=== PATIENT | female | born 1970 | race African-American/Black ===

== ENCOUNTER 2016-09-09 16:22 | Emergency (ER) | payer BC ==
[~2016-09-09] VITALS: Ht 167.6 cm; Wt 84.8 kg
[~2016-09-09 16:22] MED LIST: ADULT LOW DOSE81 MG PO; AMOXICILLIN 50500 M1 PO; ATENOLOL 50 MG50 M1 PO; BENTYL 20 MG TA20 M1 PO; CARVEDILOL6.25 MG PO; CEFDINIR300 MG PO; CIPROFLOXACIN500 M1 PO; COLACE100 MG PO; CYCLOBENZAPRINE10 MG PO; FLAGYL500 MG PO; FLEXERIL PO; FLOMAX0.4 MG PO; GABAPENTIN 100100 MG PO; HYDROCHLOROTHIA25 M1 PO; HYDROXYCHLOROQ200 M1 PO; IBUPROFEN 600600 M1 PO; KLOR-CON 1010 MEQ PO; MEDROLDOSEPACK PO; MOBIC15 MG PO; MOBIC7.5 M1 PO; NAPROSYN500 MG PO; NORCO 5-325 TA1 EACH PO; NORFLEX100 MG PO; NORVASC10 MG PO; OMEPRAZOLE40 MG PO; ONDANSETRON HCL4 M2 PO; OXYCODONE HCL 55 MG PO; PENICILLIN VK500 MG PO; PERCOCET 5-3251 EACH PO; PHENERGAN 25 MG25 MG PO; PREDNISONE 20 M20 M1 PO; PREDNISONE 20 M20 MG PO; PRILOSEC 20 MG20 MG PO; PROTONIX40 MG PO; REGLAN 10 MG TA10 M1 PO; ROBAXIN 750 MG750 M1 PO; TIZANIDINE HCL4 MG PO; TRAMADOL 50 MG50 MG PO; ULTRACET TABLE1 EACH PO; ULTRAM 50MG TAB50 MG PO; VICODIN 5-5001 EACH PO; VITAMIN D 5050000 I1; VITAMIN D1000 UNI1 PO; XANAX 0.25 MG0.25 MG PO; ZANTAC 150MG T150 M1 PO; ZANTAC 150MG T150 MG PO; ZOFRAN ODT4 MG PO
[2016-09-09] MEDS ORDERED: CIPROFLOXIN HC2.5 M1 OPHTHALMIC (16:53)
== END 2016-09-09 17:12 | disposition home or self-care (01) ==
LOC: ER 16:22
DX: S05.01XA Injury of conjunctiva and corneal abrasion without foreign body, right eye, initial encounter (principal); H00.013 Hordeolum externum right eye, unspecified eyelid; I10 Essential (primary) hypertension; Z90.710 Acquired absence of both cervix and uterus; Z88.1 Allergy status to other antibiotic agents; Z88.2 Allergy status to sulfonamides; X58.XXXA Exposure to other specified factors, initial encounter; Y93.89 Activity, other specified; Y92.89 Other specified places as the place of occurrence of the external cause; Y99.9 Unspecified external cause status

== ENCOUNTER 2017-08-15 20:02 | Inpatient (IN) | payer OTHER ==
[~2017-08-15] VITALS: Ht 167.6 cm; Wt 90.4 kg
--- NOTE | ~2017-08-15 | 2DMMODE ---
[facility] [address] [address] 2 D/M-MODE ECHOCARDIOGRAM Name: CALLIE BOWEN Room #: 212-P ADM IN M.R.#: [id number] Admission: 08/15/17 Attend Phys: Austin Fall MD Discharge: Date of : 68 Date of Service: 08/16/17 1604 Report #: [id number] THIS REPORT FOR: //name// APPROVED REPORT Study performed: 08/16/2017 13:04:48 EXAM: Comprehensive 2D, Doppler, and color-flow Echocardiogram Patient Location: Echo lab Room #: [facility] Status: routine BSA: 1.98 HR: 74 bpm BP: 117/77 mmHg Other Information Study Quality: Good Indications Chest Pain Hypertension/HDD 2D Dimensions RVDd: 35.60 mm LVEF(%): 53.63 (>50%) IVSd: 9.23 (7-11mm) LVOT Diam: 19.03 (18-24mm) LVDd: 50.11 mm PWd: 10.19 (7-11mm) Ascending Ao: 29.89 (22-36mm) LVDs: 36.18 (25-40mm) Aortic Root: 28.94 mm IVC: 13.00 mm Elaine's LVEF: 53.63 % Volumes Left Atrial Volume (Systole) Single Plane 4CH: 51.32 mL Single Plane 2CH: 37.63 mL LA ESV Index: 24.00 mL/m2 Aortic Valve AoV Peak Enrrique.: 1.44 m/s AO Peak Gr.: 8.42 mmHg LVOT Max P.63 mmHg LVOT Max V: 0.81 m/s SHAKEEL Vmax: 1.60 cm2 AI Vmax: 4.43 m/s AI [place]: 2.90 m/s2 AI PHT: 443.53 ms [facility] [place] [address] 2 D/M-MODE ECHOCARDIOGRAM Name: CALLIE BOWEN Room #: 212-P [facility] IN ..#: [id number] Admission: 08/15/17 Attend Phys: Austin Fall MD Discharge: Date of : 68 Date of Service: 08/16/17 1604 Report #: [id number] Mitral Valve E/A Ratio: 1.2 MV Decel. Time: 215.99 ms MV E Max Enrrique.: 1.04 m/s MV A Enrrique.: 0.87 m/s MV PHT: 62.64 ms IVRT: 86.51 ms Pulmonary Valve PV Peak Enrrique.: 1.03 m/s PV Peak Gr.: 4.20 mmHg Pulmonary Vein P Vein S: 0.58 m/s P Vein A: 0.18 m/s P Vein D: 0.52 m/s P Vein A Dur.: 128.0 msec P Vein S/D Ratio: 1.12 Tricuspid Valve TR Peak Enrrique.: 2.82 m/s RAP Estimate: 5.00 mmHg TR Peak Gr.: 31.87 mmHg PA Pressure: 37.00 mmHg Left Ventricle The left ventricle is normal size. There is normal left ventricular wall thickness. The left ventricular systolic function is normal. The left ventricular ejection fraction is within the normal range. LVEF is 55%. The left ventricular diastolic function is normal. Right Ventricle Right ventricle is at the upper limits of normal. The right ventricular systolic function is normal. Atria The left atrium size is normal. Right atrium is at the upper limits of normal. Aortic Valve The aortic valve is normal in structure. Mild aortic regurgitation. There is no aortic valvular stenosis. Mitral Valve The mitral valve is normal in structure. Trace mitral regurgitation. No evidence of mitral valve stenosis. Tricuspid Valve The tricuspid valve is normal in structure. Trace tricuspid regurgitation. PAP is estimated at [address] [place] [address] 2 D/M-MODE ECHOCARDIOGRAM Name: CALLIE BOWEN Room #: 212-P [facility] IN ..#: [id number] Admission: 08/15/17 Attend Phys: Austin Fall MD Discharge: Date of : 68 Date of Service: 08/16/17 1604 Report #: [id number] Pulmonic Valve The pulmonary valve is normal in structure. There is no pulmonic valvular regurgitation. Great Vessels The aortic root is normal in size. IVC is normal in size and collapses >50% with inspiration. Pericardium There is no pericardial effusion. <Conclusion> The left ventricle is normal size. There is normal left ventricular wall thickness. The left ventricular systolic function is normal. Right ventricle is at the upper limits of normal. The left atrium size is normal. Mild aortic regurgitation. Trace mitral regurgitation. Trace tricuspid regurgitation. PAP is estimated at 37 mmHg. <ELECTRONICALLY SIGNED> By: Miller Brown MD 08/16/17 1604 1604 1604 Miller Brown MD /INF
--- NOTE | ~2017-08-15 | P ---
[facility] [place] [address] PROCEDURE REPORT Name: CALLIE BOWEN Room #: 212-P ADM IN M.R.#: [id number] Admission: 08/15/17 Attend Phys: Austin Fall MD Discharge: Date of : 68 Report #: [id number] THIS REPORT FOR: //name// CC: Ale Urias DO Inpatient Chart Allie Fall MD DATE OF SERVICE: 08/18/[address] Brownlee and Dr. Ale Urias. INDICATION FOR PROCEDURE: Evaluate noncardiac chest pain. Informed consent for this procedure was obtained prior to the administration of any medication. The risks of the procedure which include bleeding, perforation, infection, complications of sedation and the possibility of missing something have been explained to the patient and she has indicated her consent by signing. Propofol was slowly titrated before and during this procedure for patient comfort by the anesthesia service. The [employer] upper videoscope was introduced through the upper esophageal sphincter and advanced under direct visualization to the descending duodenum. Findings are noted on withdrawal of the scope. The duodenal mucosa appears normal throughout its entirety. Pylorus, normal mucosa. 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 Biopsies were obtained x 2 from the antrum for histopathology. Body, normal mucosa. Cardia and fundus, normal mucosa. Retroflex view reveals a small hiatal hernia. The scope was withdrawn to the esophagus. The Z-line is appropriately located at the top of the gastric folds and appears normal. The esophageal mucosa contains some very shallow erosions that are oriented in the same or parallel to the long axis of the esophagus. She also has some rings that are suggestive of an eosinophilic esophagitis. Biopsies were obtained x 2 from the esophagus to evaluate for possible eosinophilic esophagitis as well. The scope was withdrawn. The patient went to the recovery area in stable condition. She tolerated the procedure well. IMPRESSION: 1. 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 Biopsies pending. 2. Linear erosions in the esophagus along with esophageal rings suggesting eosinophilic esophagitis. Biopsies pending. Recommendations are to await the biopsy results. Continue proton pump [address] [address] PROCEDURE REPORT Name: JESSICALLIE DELVIN Room #: 212-P [facility] IN ..#: [id number] Admission: 08/15/17 Attend Phys: Austin Fall MD Discharge: Date of : 68 Report #: [id number] inhibitors. We will start her on Carafate slurry 1 gram p.o. one half hour before meals and at bedtime. Thank you very much once again for allowing me to participate in her care, Dr. Brownlee and Dr. Urias. <ELECTRONICALLY SIGNED> By: Yudith Shelby DO 08/18/179 1256 1810 Yudith Shelby DO /nt
--- NOTE | ~2017-08-15 | CATHLAB ---
[facility] [address] [place] [address] INVASIVE PROCEDURE REPORT Name: CALLIE BOWEN DELVIN Room #: 212-P ADM IN ..#: [id number] Admission: 08/15/17 Attend Phys: Austin Fall MD Discharge: Date of : 68 Date of Service: 08/17/17 [facility] Report #: [id number] THIS REPORT FOR: //name// APPROVED REPORT Patient Details Patient Status: In-Patient Room #: 212 The patient is a 46 year-old female Event Personnel Miller Brown Rewriter, Silvia, Fadumo GREGG RN, Rachael Reza RN RN, Gia Taveras Partnoy, Nancy RTR, REGISTRATION REP Monitor Procedures Performed Art Access - R femoral artery* 20021 Initial Mod Sed Same Phys/QHP Gr5y 604130 Left Heart Cath w/or w/o Coronaries [id number] [facility] Hemostasis with Manual pressure Indication Positive stress test, Chest pain Risk Factors Family History, Hypercholesterolemia, Hypertension Procedure Narrative The Right Groin^ was infiltrated with 1% Lidocaine subcutaneous anesthesia. A PINNACLE 4FR Sheath #[id number] sheath was inserted into the RFA^. Coronary angiography was performed using coronary diagnostic catheters. The right coronary system was accessed and visualized with a JR4 catheter. The left coronary system was accessed and visualized with a JL4 catheter. The left ventricle was accessed and visualized with a Pigtail catheter. Left ventricular/Aortic Valve gradient assessed via catheter pullback. Left ventriculogram was performed in 30 degree projection. Hemostasis was obtained with manual pressure following sheath removal without any complications. The patient tolerated the procedure well and there were no complications associated with the procedure. There was no hematoma. Intraoperative Conscious Sedation Sedation start time: 09:15 Case end Time: 09:25 Fentanyl 25 mcg Versed 2 mg [facility] [place] [address] INVASIVE PROCEDURE REPORT Name: CALLIE BOWEN DELVIN Room #: 212-P [facility] IN ..#: [id number] Admission: 08/15/17 Attend Phys: Austin Fall MD Discharge: Date of : 68 Date of Service: 08/17/17 1257 Report #: [id number] Fluoro Time: 2.20 minutes Dose: DAP 3117.32 cGycm2 359 mGy Contrast Type and Amount: Visipaque 85 ml Coronary Angiography The patient's coronary anatomy is co- dominant. Diagnostic Cath Left Main Large-caliber vessel, angiographically normal. LAD Moderate to large size caliber vessel, traveling down the anterior wall and wrapping around the apex. There are no flow-limiting lesions in the LAD. Diagonal 1 Small-caliber vessel, angiographically normal. Circumflex Codominant vessel, angiographically normal. OM1 Moderate size caliber vessel, angiographically normal. OM2 Small-caliber vessel, angiographically normal. Right Coronary Moderate size caliber vessel, angiographically normal. R PDA Small size caliber vessel, angiographically normal. Left Ventriculography The left ventricle is normal in size with normal contractility. The left ventricular ejection fraction is estimated to be 50%. Hemodynamics The aortic pressure is 134/93 mmHg with a mean of 111 mmHg. The left ventricular pressure is 129/15 mmHg with a mean of mmHg. The left ventricular end diastolic pressure is 31 mmHg. Conclusion 1. Angiographically normal coronary arteries. 2. Codominant system. 3. Borderline lownormal LV systolic function. 4. Recommend medical therapy. <ELECTRONICALLY SIGNED> By: Miller Brown MD 08/17/17 1257 1257 1257 Miller Brown MD /INF
--- NOTE | ~2017-08-15 | S ---
[facility] [place] [address] SURGICAL PATH RPT PROCEDURE Name: JAZMINE BOWEN Room #: 212-P DIS IN M.R.#: [id number] Admission: 08/15/17 Date of : 68 Discharge: 08/18/17 Report #: [id number] Path Case #: [id number] PATHOLOGY REPORT COLLECTION DATE: 08/18/2017 RECEIVED DATE: 08/18/2017 SUBMITTING PHYS: Dr. Yudith Shelby OTHER PHYS: Dr. Allie Urias SPECIMEN(S) RECEIVED: A.Gastritis R/O H pylori bx B.Esophagus R/O Eosinophilic esophagitis * * * * * * * * * * * * FINAL DIAGNOSIS: A. "Gastritis, R/O H. pylori BX", biopsy: - Gastric mucosa with mild reactive changes and minimal chronic inflammation. - Negative H. pylori immunohistochemical stain (block A1); control reacted appropriately. B. "Esophagus, R/O eosinophilic esophagitis", biopsy: - Esophageal squamous mucosa with mild acute esophagitis; no intraepithelial eosinophils, glandular epithelium or dysplasia seen. (CLW:omar; 08/19/2017) COMMENT: Clinical and endoscopic correlation is recommended. PATHOLOGIST: Ann Marie Freedman M.D. REPORT ELECTRONICALLY SIGNED BY: Ann Marie Freedman M.D. DATE/TIME: 08/19/2017 14:39 * * * * * * * * * * * * GROSS PATHOLOGY: A. Received in formalin labeled "Jazmine Bowen, gastritis, rule out H. pylori," are 2 segments of rock soft tissue measuring 0.7 x 0.2 x 0.2 cm in aggregate dimensions and ranging from 0.3 to 0.4 cm in maximum dimension. The specimen is submitted entirely in cassette A1. B. Received in formalin labeled "Jazmine Bowen, esophagus, rule out eosinophilic esophagitis," are 2 segments of rock soft tissue measuring 0.7 x 0.3 x 0.1 cm in aggregate dimensions and ranging from 0.3 to 0.4 cm in maximum dimension. The specimen is submitted entirely in cassette B1. (TSD; 08/18/2017) [address] [address] SURGICAL PATH RPT PROCEDURE Name: JOSEPH BOWENKINSEY HARGROVE Room #: 212-P DIS IN M.R.#: [id number] Admission: 08/15/17 Date of : 68 Discharge: 08/18/17 Report #: [id number] Path Case #: [id number] CLINICAL HISTORY: Pre-OP BX: Noncardiac chest pain Post-OP BX: Gastritis INITIAL CPT CODE(S): A; 56585, 12848 B; 53253 Professional services performed by [facility] at [address], [place] [address] Technical services performed by [facility] at [address] [place] [address], [address], [place] [address]. [facility] [address] [place] [address] PHONE: [phone] DIRECTOR: Ashok Boston M.D. * * * END OF REPORT * * *
--- NOTE | ~2017-08-15 | EKG ---
[address] [place] [address] ELECTROCARDIOGRAM REPORT Name: JESSICALLIEKINSEY HARGROVE Room #: 212-P [facility]#: [id number] Admission: 08/15/17 Attend Phys: Austin Fall MD Discharge: Date of : 68 Report #: [id number] THIS REPORT FOR: //name// [facility] ED Test Date: 2017-08-15 Test Time: 20:08:35 Pat Name: CALLIE BOWEN Department: Room: [facility] Gender: F Director Process Improvement: BOBBY : 1970 Requested By: Daniel Villela Order Number: [id number] MD: Mamadou Ac Measurements Intervals [place] Rate: 85 P: 45 VT: 122 QRS: 46 QRSD: 86 T: -9 QT: 381 QTc: 453 Interpretive Statements Sinus rhythm Consider left ventricular hypertrophy Borderline T abnormalities Compared to ECG 08/21/2016 15:52:38 No significant changes Electronically Signed On 08-16-2017 8:00:57 CAR RENTAL AGENT by Mamadou Ac [email or web address] <ELECTRONICALLY SIGNED> By: Mamadou Ac MD, [facility] 08/16/17 08 07 07 Mamadou Ac MD, FACC /EPI
[~2017-08-15 20:02] MED LIST changes: +CIPROFLOXIN HC2.5 M1 OPHTHALMIC
[2017-08-15 20:04] VITALS: BP 147/109
[2017-08-15 20:33] LABS: ABSOLUTE NEUTROPHILS 3.5 thou/uL (1.4-8.2); BASOPHILS 1.3 % (0.0-2.0); EOSINOPHILS 1.4 % (0.0-3.0); HEMATOCRIT 40.3 % (37.0-47.0); HEMOGLOBIN 13.5 gm/dL (12.0-15.0); LYMPHOCYTES 45.1 % (24.0-44.0); MCH 26.8 pg (26.0-34.0); MCHC 33.4 g/dL (28.0-37.0); MCV 80.2 fL (80.0-100.0); PLATELET COUNT 271 thou/uL (150-400); POLYS 43.2 % (36.0-66.0); RBC 5.03 mil/uL (4.20-5.00); RDW 15.6 % (10.5-14.5); WBC 8.2 thou/uL (4.0-11.0)
[2017-08-15 20:51] LABS: ANION GAP 8 mmol/L (7-16); BUN 14 mg/dL (7-18); CHLORIDE 101 mmol/L (98-107); CO2 32 mmol/L (21-32); CREATININE 1.2 mg/dL (0.6-1.0); GLUCOSE 98 mg/dL (74-106); POTASSIUM 3.7 mmol/L (3.5-5.1); SODIUM 141 mmol/L (136-145)
[2017-08-15 20:55] LABS: ALBUMIN 3.8 g/dL (3.4-5.0); DIRECT BILIRUBIN < 0.1 mg/dL (<0.1-0.3); LIPASE 163 U/L (73-393); SGOT 18 U/L (15-37); SGPT 30 U/L (30-65); TOTAL BILIRUBIN 0.3 mg/dL (<0.1-1.0)
[2017-08-15 21:00] LABS: TROPONIN-I < 0.04 ng/mL (<0.06)
[2017-08-15 22:03] VITALS: BP 129/89
[2017-08-15 22:35] VITALS: BP 132/90
[2017-08-15] MEDS ORDERED: AMITRIPTYLINE H25 M2 PO (23:44)
[2017-08-16 03:00] LABS: CHOLESTEROL 173 mg/dL (<200); HDL CHOLESTEROL 74 mg/dL (>40); LDL CHOLESTEROL 92 mg/dL (<100); TC:HDL 2.3 Ratio (Not establshd); TRIGLYCERIDE 37 mg/dL (<150); VLDL 7 mg/dL (<40)
[2017-08-16 03:01] LABS: SERUM ASSESSMENT Clear
[2017-08-16 05:53] VITALS: BP 111/76
[2017-08-16 07:53] VITALS: BP 117/77
[2017-08-16 16:45] VITALS: BP 152/87
[2017-08-16 19:11] VITALS: BP 124/84
[2017-08-17] VITALS (15 sets, daily range): BP systolic 106–152; BP diastolic 42–106
[2017-08-17 04:47] LABS: HEMATOCRIT 35.3 % (37.0-47.0); MCV 81.5 fL (80.0-100.0); RBC 4.33 mil/uL (4.20-5.00); RDW 16.1 % (10.5-14.5); WBC 5.2 thou/uL (4.0-11.0)
[2017-08-17 04:48] LABS: CALCIUM 8.6 mg/dL (8.5-10.1); CREATININE 1.1 mg/dL (0.6-1.0); POTASSIUM 3.9 mmol/L (3.5-5.1)
[2017-08-17 05:03] LABS: HEMOGLOBIN 11.3 gm/dL (12.0-15.0)
[2017-08-18 03:47] VITALS: BP 107/72
[2017-08-18 04:28] LABS: HEMATOCRIT 34.4 % (37.0-47.0); HEMOGLOBIN 11.3 gm/dL (12.0-15.0); MCH 26.8 pg (26.0-34.0); MCV 81.1 fL (80.0-100.0); RBC 4.24 mil/uL (4.20-5.00); RDW 15.5 % (10.5-14.5); WBC 5.3 thou/uL (4.0-11.0)
[2017-08-18 04:39] LABS: POTASSIUM 4.1 mmol/L (3.5-5.1)
[2017-08-18 07:19] VITALS: BP 120/81
[2017-08-18 13:35] VITALS: BP 149/110
[2017-08-18 15:07] VITALS: BP 146/101
[2017-08-18 17:35] VITALS: BP 128/92
[2017-08-18 17:37] VITALS: BP 128/92
[2017-10-11] MEDS ORDERED: NORCO 5-325 TA1 EACH PO (19:14)
[2017-10-18] MEDS ORDERED: NORCO 10-325 T1 EACH PO (23:46)
[2017-10-18] MEDS ORDERED: CYCLOBENZAPRINE5 MG PO (23:46)
[2018-02-27] MEDS ORDERED: NORCO 5-325 TA1 EACH PO (23:47)
== END 2017-08-18 18:30 | disposition home or self-care (01) | DRG 287 ==
LOC: ER 20:02 → 2N 21:29 → EROBS 21:29 → 2N 22:03
PROVIDERS: Hospitalist; Internal Medicine Cardiovascular Disease; Nurse Practitioner; Nurse Practitioner Acute Care
PROC: B2111ZZ Fluoroscopy of Multiple Coronary Arteries using Low Osmolar Contrast (ICD-10-PCS; principal; 2017-08-17)
PROC: 4A023N7 Measurement of Cardiac Sampling and Pressure, Left Heart, Percutaneous Approach (ICD-10-PCS; principal; 2017-08-17)
PROC: B2151ZZ Fluoroscopy of Left Heart using Low Osmolar Contrast (ICD-10-PCS; principal; 2017-08-17)
PROC: 0DB58ZX Excision of Esophagus, Via Natural or Artificial Opening Endoscopic, Diagnostic (ICD-10-PCS; 2017-08-18)
PROC: 0DB68ZX Excision of Stomach, Via Natural or Artificial Opening Endoscopic, Diagnostic (ICD-10-PCS; 2017-08-18)
DX: R07.89 Other chest pain (principal); I10 Essential (primary) hypertension; K21.9 Gastro-esophageal reflux disease without esophagitis; K59.00 Constipation, unspecified; M19.90 Unspecified osteoarthritis, unspecified site; E78.00 Pure hypercholesterolemia, unspecified; K44.9 Diaphragmatic hernia without obstruction or gangrene; E66.9 Obesity, unspecified; Z68.32 Body mass index [BMI] 32.0-32.9, adult; Z90.710 Acquired absence of both cervix and uterus; Z79.899 Other long term (current) drug therapy; Z88.1 Allergy status to other antibiotic agents; Z88.2 Allergy status to sulfonamides; Z88.8 Allergy status to other drugs, medicaments and biological substances
CPT/HCPCS: 10081; 62110; 62900; 70005

== ENCOUNTER 2017-08-22 20:17 | Emergency (ER) | payer OTHER ==
[~2017-08-22] VITALS: Ht 167.6 cm; Wt 88.0 kg
--- NOTE | ~2017-08-22 | EKG ---
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: Franklin MCMILLAN : 1970 Requested By: Aristides Denson Order Number: [id number] MD: Mamadou Ac Measurements Intervals [place] Rate: 103 P: 23 MO: 143 QRS: 35 QRSD: 87 T: -63 QT: 376 QTc: 492 Interpretive Statements Sinus tachycardia Nonspecific T abnormalities, diffuse leads Borderline prolonged QT interval Compared to ECG 08/15/2017 20:08:35 No significant change was found Electronically Signed On 08-23-2017 8:43:05 FEDERAL DISTRICT CLERK by Mamadou Ac [email or web address] <ELECTRONICALLY SIGNED> By: Mamadou Ac MD, [facility] 08/23/17 0843 2026 25 Mamadou Ac MD, [facility] /EPI
[~2017-08-22 20:17] MED LIST changes: +AMITRIPTYLINE H25 M2 PO
[2017-08-22 21:10] LABS: ABSOLUTE NEUTROPHILS 3.1 thou/uL (1.4-8.2); BASOPHILS 0.9 % (0.0-2.0); EOSINOPHILS 1.8 % (0.0-3.0); HEMATOCRIT 41.1 % (37.0-47.0); HEMOGLOBIN 13.6 gm/dL (12.0-15.0); LYMPHOCYTES 48.2 % (24.0-44.0); MCH 26.7 pg (26.0-34.0); MCHC 33.2 g/dL (28.0-37.0); MCV 80.5 fL (80.0-100.0); MONOCYTES 9.5 % (1.0-8.0); PLATELET COUNT 305 thou/uL (150-400); POLYS 39.6 % (36.0-66.0); RDW 15.8 % (10.5-14.5); WBC 7.7 thou/uL (4.0-11.0)
[2017-08-22 21:23] LABS: ANION GAP 10 mmol/L (7-16); BUN 15 mg/dL (7-18); CHLORIDE 98 mmol/L (98-107); CO2 29 mmol/L (21-32); CREATININE 1.1 mg/dL (0.6-1.0); GLUCOSE 102 mg/dL (74-106); POTASSIUM 3.3 mmol/L (3.5-5.1); SODIUM 137 mmol/L (136-145)
[2017-08-22 21:32] LABS: ALBUMIN 3.8 g/dL (3.4-5.0); SGOT 19 U/L (15-37); SGPT 26 U/L (30-65); TOTAL BILIRUBIN 0.3 mg/dL (<0.1-1.0); TOTAL PROTEIN 8.5 g/dL (6.4-8.2); TROPONIN-I < 0.04 ng/mL (<0.06)
[2017-08-22] MEDS ORDERED: CARAFATE 1 GM TA1 G1 PO (21:50)
[2017-08-22 22:09] VITALS: BP 143/101
[2017-10-11] MEDS ORDERED: NORCO 5-325 TA1 EACH PO (19:14)
[2017-10-18] MEDS ORDERED: CYCLOBENZAPRINE5 MG PO (23:46)
[2017-10-18] MEDS ORDERED: NORCO 10-325 T1 EACH PO (23:46)
[2018-02-27] MEDS ORDERED: NORCO 5-325 TA1 EACH PO (23:47)
== END 2017-08-22 22:13 | disposition home or self-care (01) ==
LOC: ER 20:17
PROVIDERS: Emergency Medicine
DX: R07.89 Other chest pain (principal); I10 Essential (primary) hypertension; Z90.710 Acquired absence of both cervix and uterus; Z88.1 Allergy status to other antibiotic agents; Z88.8 Allergy status to other drugs, medicaments and biological substances

== ENCOUNTER 2017-11-05 13:21 | Emergency (ER) | payer OTHER ==
[~2017-11-05] VITALS: Ht 167.6 cm; Wt 88.9 kg
[~2017-11-05 13:21] MED LIST changes: +CARAFATE 1 GM TA1 G1 PO; +CYCLOBENZAPRINE5 MG PO; +NORCO 10-325 T1 EACH PO
[2017-11-05] MEDS ORDERED: HYDROCODONE-AP1 EAC6 PO (14:51)
== END 2017-11-05 15:06 | disposition home or self-care (01) ==
LOC: ER 13:21
DX: S93.601A Unspecified sprain of right foot, initial encounter (principal); I10 Essential (primary) hypertension; Z88.1 Allergy status to other antibiotic agents; Z88.2 Allergy status to sulfonamides; V89.2XXA Person injured in unspecified motor-vehicle accident, traffic, initial encounter; Y93.89 Activity, other specified; Y92.89 Other specified places as the place of occurrence of the external cause; Y99.8 Other external cause status

== ENCOUNTER 2018-01-02 12:44 | Emergency (ER) | payer OTHER ==
[~2018-01-02] VITALS: Ht 167.6 cm; Wt 88.0 kg
[~2018-01-02 12:44] MED LIST changes: +HYDROCODONE-AP1 EAC6 PO
[2018-01-02] MEDS ORDERED: IBUPROFEN 600600 M1 PO (15:57)
[2018-01-02] MEDS ORDERED: ULTRAM 50MG TAB50 MG PO (15:57)
== END 2018-01-02 16:17 | disposition home or self-care (01) ==
LOC: ER 12:44
DX: S80.12XA Contusion of left lower leg, initial encounter (principal); I10 Essential (primary) hypertension; Z90.710 Acquired absence of both cervix and uterus; Z88.1 Allergy status to other antibiotic agents; Z88.2 Allergy status to sulfonamides; V89.2XXA Person injured in unspecified motor-vehicle accident, traffic, initial encounter; Y93.89 Activity, other specified; Y92.89 Other specified places as the place of occurrence of the external cause; Y99.8 Other external cause status

== ENCOUNTER 2018-05-01 09:35 | Emergency (ER) | payer OTHER ==
[~2018-05-01] VITALS: Ht 170.2 cm; Wt 88.0 kg
[2018-05-01 10:04] LABS: URINE BILIRUBIN NEGATIVE (Negative); URINE BLOOD TRACE (Negative); URINE CLARITY CLEAR; URINE COLOR YELLOW; URINE GLUCOSE-RANDOM* NEGATIVE (Negative); URINE KETONES NEGATIVE (Negative); URINE LEUKOCYTES-REFLEX NEGATIVE (Negative); URINE NITRITE-REFLEX NEGATIVE (Negative); URINE PROTEIN (DIPSTICK) NEGATIVE (Negative); URINE SPECIFIC GRAVITY 1.025 (1.005-1.035); URINE UROBILINOGEN 0.2 E.U./dl (0.2-1.0)
[2018-05-01 10:28] LABS: ABSOLUTE NEUTROPHILS 2.4 thou/uL (1.4-8.2); BASOPHILS 0.6 % (0.0-2.0); EOSINOPHILS 1.9 % (0.0-3.0); HEMATOCRIT 40.2 % (37.0-47.0); HEMOGLOBIN 13.2 gm/dL (12.0-15.0); LYMPHOCYTES 42.8 % (24.0-44.0); MCH 26.4 pg (26.0-34.0); MCHC 32.8 g/dL (28.0-37.0); MCV 80.4 fL (80.0-100.0); MONOCYTES 9.2 % (1.0-8.0); PLATELET COUNT 257 thou/uL (150-400); POLYS 45.5 % (36.0-66.0); RDW 16.5 % (10.5-14.5); WBC 5.2 thou/uL (4.0-11.0)
[2018-05-01 10:34] LABS: CALCIUM 9.7 mg/dL (8.5-10.1); POTASSIUM 3.5 mmol/L (3.5-5.1)
[2018-05-01 10:40] LABS: ALBUMIN 3.5 g/dL (3.4-5.0); DIRECT BILIRUBIN 0.1 mg/dL (<0.1-0.3); TOTAL BILIRUBIN 0.3 mg/dL (<0.1-1.0)
[2018-05-01] MEDS ORDERED: NORCO 5-325 TA1 EACH PO (12:27)
[2018-05-01] MEDS ORDERED: MOBIC15 MG PO (12:27)
[2018-05-01] MEDS ORDERED: VALIUM5 MG PO (12:27)
[2018-05-01 12:44] VITALS: BP 135/85
== END 2018-05-01 12:50 | disposition home or self-care (01) ==
LOC: ER 09:35
PROVIDERS: Emergency Medicine
DX: M54.5 Low back pain (principal); R10.9 Unspecified abdominal pain; I10 Essential (primary) hypertension; M19.90 Unspecified osteoarthritis, unspecified site; Z88.1 Allergy status to other antibiotic agents; Z90.710 Acquired absence of both cervix and uterus; Z88.8 Allergy status to other drugs, medicaments and biological substances; Z88.2 Allergy status to sulfonamides

== ENCOUNTER 2018-06-04 17:38 | Emergency (ER) | payer OTHER ==
[~2018-06-04] VITALS: Ht 167.6 cm; Wt 90.7 kg
--- NOTE | ~2018-06-04 | EKG ---
[place] [address] [facility] [place] [address] ELECTROCARDIOGRAM REPORT Name: CALLIE BOWEN [facility] [id number] Admission: 06/04/18 Attend Phys: Discharge: 06/04/18 Date of : 68 Report #: [id number] THIS REPORT FOR: //name// [facility] ED Test Date: 2018-06-04 Test Time: 18:04:03 Pat Name: CALLIE BOWEN Department: Room: Gender: F Records Supervisor: DOMINICK : 1970 Requested By: Nicholas Sumner Order Number: [id number] MD: Mamadou Ac Measurements Intervals [place] Rate: 90 P: 25 ID: 134 QRS: 41 QRSD: 90 T: -8 QT: 398 QTc: 487 Interpretive Statements Sinus rhythm Nonspecific ST and T wave abnormality Borderline prolonged QT interval Compared to ECG 02/27/2018 22:17:29 No significant change was found Electronically Signed On 06-05-2018 10:38:30 ADVERTISEMENT COMPOSITOR by Mamadou Ac [email or web address] <ELECTRONICALLY SIGNED> By: Mamadou Ac MD, [facility] 06/05/18 1038 03 03 Mamadou Ac MD, [facility] /EPI
[~2018-06-04 17:38] MED LIST changes: +VALIUM5 MG PO
[2018-06-04] MEDS ORDERED: BUSPIRONE HCL10 MG PO (17:55)
[2018-06-04 18:20] LABS: ABSOLUTE NEUTROPHILS 4.2 thou/uL (1.4-8.2); BASOPHILS 1.3 % (0.0-2.0); EOSINOPHILS 1.5 % (0.0-3.0); HEMATOCRIT 39.2 % (37.0-47.0); HEMOGLOBIN 12.6 gm/dL (12.0-15.0); LYMPHOCYTES 40.8 % (24.0-44.0); MCHC 32.3 g/dL (28.0-37.0); MCV 80.7 fL (80.0-100.0); PLATELET COUNT 285 thou/uL (150-400); POLYS 50.4 % (36.0-66.0); RBC 4.85 mil/uL (4.20-5.00); RDW 16.2 % (10.5-14.5); WBC 8.4 thou/uL (4.0-11.0)
[2018-06-04 18:29] LABS: CALCIUM 9.6 mg/dL (8.5-10.1); CREATININE 1.1 mg/dL (0.6-1.0); POTASSIUM 3.6 mmol/L (3.5-5.1)
[2018-06-04 18:34] LABS: ALBUMIN 3.6 g/dL (3.4-5.0); TOTAL BILIRUBIN 0.3 mg/dL (<0.1-1.0); TOTAL PROTEIN 7.9 g/dL (6.4-8.2)
[2018-06-04 18:58] LABS: URINE BILIRUBIN NEGATIVE (Negative); URINE BLOOD TRACE (Negative); URINE CLARITY CLEAR; URINE COLOR YELLOW; URINE GLUCOSE-RANDOM* NEGATIVE (Negative); URINE KETONES NEGATIVE (Negative); URINE LEUKOCYTES-REFLEX NEGATIVE (Negative); URINE NITRITE-REFLEX NEGATIVE (Negative); URINE PROTEIN (DIPSTICK) NEGATIVE (Negative); URINE UROBILINOGEN 0.2 E.U./dl (0.2-1.0)
[2018-06-04] MEDS ORDERED: MEDROLDOSEPACK PO (19:30)
[2018-06-04] MEDS ORDERED: FLEXERIL PO (19:30)
[2018-06-04] MEDS ORDERED: LIDOCAINE1 EACH TOP (19:30)
[2018-06-04 19:54] VITALS: BP 137/87
== END 2018-06-04 19:55 | disposition home or self-care (01) ==
LOC: ER 17:38
PROVIDERS: Physician Assistant
DX: M54.5 Low back pain (principal); R07.89 Other chest pain; I10 Essential (primary) hypertension; Z88.1 Allergy status to other antibiotic agents; Z88.8 Allergy status to other drugs, medicaments and biological substances; Z88.2 Allergy status to sulfonamides; Z90.710 Acquired absence of both cervix and uterus

== ENCOUNTER 2018-07-29 19:21 | Emergency (ER) | payer OTHER ==
[~2018-07-29] VITALS: Ht 167.6 cm; Wt 88.0 kg
[~2018-07-29 19:21] MED LIST changes: +BUSPIRONE HCL10 MG PO; +LIDOCAINE1 EACH TOP
[2018-07-29 20:51] LABS: ABSOLUTE NEUTROPHILS 2.6 thou/uL (1.4-8.2); BASOPHILS 0.5 % (0.0-2.0); EOSINOPHILS 1.3 % (0.0-3.0); HEMATOCRIT 41.5 % (37.0-47.0); HEMOGLOBIN 13.4 gm/dL (12.0-15.0); LYMPHOCYTES 44.4 % (24.0-44.0); MCH 25.9 pg (26.0-34.0); MCHC 32.4 g/dL (28.0-37.0); MCV 80.2 fL (80.0-100.0); PLATELET COUNT 220 thou/uL (150-400); POLYS 41.8 % (36.0-66.0); RBC 5.17 mil/uL (4.20-5.00); RDW 16.3 % (10.5-14.5); WBC 6.2 thou/uL (4.0-11.0)
[2018-07-29 21:06] LABS: CALCIUM 10.2 mg/dL (8.5-10.1); CREATININE 0.9 mg/dL (0.6-1.0); POTASSIUM 4.5 mmol/L (3.5-5.1)
[2018-07-29 21:07] LABS: ALBUMIN 3.5 g/dL (3.4-5.0); TOTAL BILIRUBIN 0.5 mg/dL (<0.1-1.0); TOTAL PROTEIN 8.4 g/dL (6.4-8.2)
[2018-07-29 21:08] LABS: URINE BILIRUBIN NEGATIVE (Negative); URINE BLOOD TRACE (Negative); URINE CLARITY CLEAR; URINE COLOR YELLOW; URINE GLUCOSE-RANDOM* NEGATIVE (Negative); URINE KETONES NEGATIVE (Negative); URINE LEUKOCYTES-REFLEX NEGATIVE (Negative); URINE NITRITE-REFLEX NEGATIVE (Negative); URINE PROTEIN (DIPSTICK) NEGATIVE (Negative); URINE SPECIFIC GRAVITY >= 1.030 (1.005-1.035); URINE UROBILINOGEN 0.2 E.U./dl (0.2-1.0)
[2018-07-29] MEDS ORDERED: NAPROSYN500 MG PO (21:12)
[2018-07-29 22:14] VITALS: BP 135/83
== END 2018-07-29 22:24 | disposition home or self-care (01) ==
LOC: ER 19:21
PROVIDERS: Emergency Medicine
DX: M54.5 Low back pain (principal); R51 Headache; G89.29 Other chronic pain; I10 Essential (primary) hypertension; Z88.1 Allergy status to other antibiotic agents; Z88.8 Allergy status to other drugs, medicaments and biological substances; Z88.2 Allergy status to sulfonamides; Z90.710 Acquired absence of both cervix and uterus

== ENCOUNTER 2018-11-29 09:30 | Emergency (ER) | payer OTHER ==
[~2018-11-29] VITALS: Ht 167.6 cm; Wt 88.0 kg
[2018-11-29 10:44] VITALS: BP 139/85
[2018-11-29] MEDS ORDERED: PREDNISONE 10 M10 MG PO (10:49)
[2018-11-29] MEDS ORDERED: NORFLEX100 MG PO (10:49)
== END 2018-11-29 10:44 | disposition home or self-care (01) ==
LOC: ER 09:30
DX: S39.012A Strain of muscle, fascia and tendon of lower back, initial encounter (principal); S46.911A Strain of unspecified muscle, fascia and tendon at shoulder and upper arm level, right arm, initial encounter; I10 Essential (primary) hypertension; Z90.710 Acquired absence of both cervix and uterus; Z88.0 Allergy status to penicillin; Z88.1 Allergy status to other antibiotic agents; Z88.2 Allergy status to sulfonamides; Z88.8 Allergy status to other drugs, medicaments and biological substances; X50.9XXA Other and unspecified overexertion or strenuous movements or postures, initial encounter; Y93.89 Activity, other specified; Y92.89 Other specified places as the place of occurrence of the external cause; Y99.8 Other external cause status

== ENCOUNTER 2019-01-08 08:07 | Emergency (ER) | payer OTHER ==
[~2019-01-08] VITALS: Ht 167.6 cm; Wt 86.3 kg
[~2019-01-08 08:07] MED LIST changes: +PREDNISONE 10 M10 MG PO
[2019-01-08] MEDS ORDERED: VITAMIN B-12500 MCG PO (08:22)
[2019-01-08 09:34] LABS: HEMATOCRIT 40.9 % (37.0-47.0); HEMOGLOBIN 13.4 gm/dL (12.0-15.0); MCH 26.5 pg (26.0-34.0); MCHC 32.7 g/dL (28.0-37.0); MCV 81.2 fL (80.0-100.0); PLATELET COUNT 250 thou/uL (150-400); RBC 5.03 mil/uL (4.20-5.00); RDW 16.9 % (10.5-14.5); WBC 4.7 thou/uL (4.0-11.0)
[2019-01-08 09:41] LABS: CALCIUM 9.4 mg/dL (8.5-10.1); CREATININE 0.9 mg/dL (0.6-1.0); POTASSIUM 3.7 mmol/L (3.5-5.1)
[2019-01-08 09:47] LABS: ALBUMIN 2.8 g/dL (3.4-5.0); TOTAL BILIRUBIN 0.3 mg/dL (<0.1-1.0); TOTAL PROTEIN 7.9 g/dL (6.4-8.2)
[2019-01-08 09:51] LABS: ABSOLUTE NEUTROPHILS 1.6 thou/uL (1.4-8.2)
[2019-01-08 09:52] LABS: ANISOCYTOSIS 1+
[2019-01-08] MEDS ORDERED: MOBIC15 MG PO (10:01)
[2019-01-08] MEDS ORDERED: ARTHRITIS PAI42.5 GM TOP (10:01)
[2019-01-08 10:04] VITALS: BP 143/92
[2019-01-08] MEDS ORDERED: REGLAN 10 MG TA10 MG PO (10:16)
== END 2019-01-08 10:04 | disposition home or self-care (01) ==
LOC: ER 08:07
PROVIDERS: Emergency Medicine
DX: M25.511 Pain in right shoulder (principal); M25.512 Pain in left shoulder; M79.10 Myalgia, unspecified site; I10 Essential (primary) hypertension; Z90.710 Acquired absence of both cervix and uterus; Z88.1 Allergy status to other antibiotic agents; Z88.2 Allergy status to sulfonamides; Z88.8 Allergy status to other drugs, medicaments and biological substances

== ENCOUNTER 2021-02-27 11:36 | Inpatient (IN) | payer OTHER ==
[2021-02-26 19:40] VITALS: BP 152/84
[~2021-02-27] VITALS: Ht 167.6 cm; Wt 89.1 kg
--- NOTE | ~2021-02-27 | EMS ---
[address] [address] EMS Patient Care Report Name: CALLIE BOWEN Room #: 219-P ADM IN M.R.#: [id number] Admission: 02/27/21 Attend Phys: Michael Ríos MD Discharge: Date of : 68 Report #: [id number] THIS REPORT FOR: //name// Report Transmitted: 02/27/2021 18:16 EMS Care Summary [place], [place]/[facility] Incident [id number] @ 02/27/2021 10:47 Incident Location [address] [place] [address] Patient CALLIE BOWEN Female, 50 Years 1970 Patient Address [address] [place] [address] Patient History Hypertension (HTN), Patient Allergies Penicillin allergy,Sulfa,Other drug allergy,Amoxicillin, Patient Medications Other, ASA, Carvedilol, Chief Complaint chest pressure Disposition Transported No Lights/[place] Dispatch Reason Chest Pain (Non-Traumatic) Transported To [facility] Narrative pt states she has felt "indigestion" and racing heart since about 0500 today. pt mother finally called 911 for pt. pt found seated on couch, a&o. she appears mildly anxious but NAD. no past hrt hx. pt EKG shows SVT rate in 240s. tx as listed in flow chart. Adenosine admin on scene. pt HR slows to [place] [id number] EMS Patient Care Report Name: CALLIE BOWEN Room #: 219-P ADM IN M.R.#: [id number] Admission: 02/27/21 Attend Phys: Michael Ríos MD Discharge: Date of : 68 Report #: [id number] in 120s to 130s. no change pt LOC, pt reports "indigestion and racing heart " have subsided. pt assist to cot and transport w/o further change in pt complaint or condition. report to [facility] staff. Initial Vitals @11:29P: 123,R: 40,CO: 1,SpO2: 98, @11:20P: 122,R: 32,CO: 1,SpO2: 99, @11:04P: 229,R: 9, @11:15P: 128,R: 32,CO: 0,SpO2: 83, @11:01P: 231, @11:11P: 128,R: 10,BP: 154/105, @11:14P: 134,R: 20,CO: 1,SpO2: 97, @11:02P: 231,R: 9, @11:21P: 121,R: 32,SpO2: 98, @11:13P: 132,R: 21,CO: 2,SpO2: 98, @11:10P: 137,R: 12, @11:18P: 127,R: 39,CO: 1,SpO2: 97, @11:16P: 131,R: 39,CO: 2,SpO2: 96, @11:04P: 234,R: 21, @11:23P: 125,R: 68,CO: 1,SpO2: 93, @11:30P: 122,R: 37,SpO2: 99, @11:26P: 126,R: 43,CO: 0,SpO2: 96, @11:01P: 233,R: 20,BP: 144/109,Pain: 0/10,GCS: 15,SpO2: 98,Revised Trauma: 12,IA Suspected: false @11:46P: 119,R: 18,BP: 159/95,Pain: 0/10,GCS: 15,SpO2: 97,Revised Trauma: 12, Assessments @10:59MENTAL:No Abnormalities,SKIN:No Abnormalities,HEENT:Head/Face: No Abnormalities,LUNG SOUNDS:ABDOMEN:PELVIS//GI:EXTREMITIES:PULSE:Radial: 2+ Normal,NEURO:No Abnormalities,@11:17MENTAL:No Abnormalities,SKIN:No Abnormalities,HEENT:Head/Face: No Abnormalities,LUNG SOUNDS:ABDOMEN:PELVIS//GI:EXTREMITIES:PULSE:NEURO:No Abnormalities, Impression Cardiac arrhythmia/dysrhythmia Procedures @11:0412-Lead ECGResponse: UnchangedSucceeded@10:59ALS AssessmentResponse: Unchanged@11:13StretcherResponse: Unchanged@11:10Adenosine - 12 Milligrams (mg) - Intravenous (IV)Response: Improved@11:013-Lead ECGResponse: Unchanged@11:08Normal Saline (.9% NaCl) 50cc (20 ga) Site: Antecubital-RightResponse: UnchangedSucceeded Timeline 10:46,Call Received 10:46,Dispatch Notified [facility] [address] [place] [address] EMS Patient Care Report Name: CALLIE BOWEN Room #: 219-P ADM IN [place]#: [id number] Admission: 02/27/21 Attend Phys: Michael Ríos MD Discharge: Date of : 68 Report #: [id number] 10:47,Dispatched 10:47,En Route 10:57,On Scene 10:59,At Patient 10:59,ALS Assessment,Response: Unchanged 11:01,BP: / M,PULSE: 231,RR: R,SPO2: Ox,ETCO2: ,BG: ,PAIN: ,GCS: , 11:01,3-Lead ECG,Response: Unchanged 11:01,BP: 144/109 M,PULSE: 233,RR: 20 R,SPO2: 98 Ox,ETCO2: ,BG: ,PAIN: 0,GCS: 15, 11:02,BP: / M,PULSE: 231,RR: 9 R,SPO2: Ox,ETCO2: ,BG: ,PAIN: ,GCS: , 11:04,12-Lead ECG,Response: UnchangedSucceeded, 11:04,BP: / M,PULSE: 234,RR: 21 R,SPO2: Ox,ETCO2: ,BG: ,PAIN: ,GCS: , 11:04,BP: / M,PULSE: 229,RR: 9 R,SPO2: Ox,ETCO2: ,BG: ,PAIN: ,GCS: , 11:08,Normal Saline (.9% NaCl) 50cc 20 ga Site: Antecubital-Right,Response: UnchangedSucceeded, 11:10,Adenosine - 12 Milligrams (mg) - Intravenous (IV),Response: Improved 11:10,BP: / M,PULSE: 137,RR: 12 R,SPO2: Ox,ETCO2: ,BG: ,PAIN: ,GCS: , 11:11,BP: 154/105 M,PULSE: 128,RR: 10 R,SPO2: Ox,ETCO2: ,BG: ,PAIN: ,GCS: , 11:13,BP: / M,PULSE: 132,RR: 21 R,SPO2: 98 Ox,ETCO2: ,BG: ,PAIN: ,GCS: , 11:13,Stretcher,Response: Unchanged 11:14,BP: / M,PULSE: 134,RR: 20 R,SPO2: 97 Ox,ETCO2: ,BG: ,PAIN: ,GCS: , 11:15,BP: / M,PULSE: 128,RR: 32 R,SPO2: 83 Ox,ETCO2: ,BG: ,PAIN: ,GCS: , 11:16,BP: / M,PULSE: 131,RR: 39 R,SPO2: 96 Ox,ETCO2: ,BG: ,PAIN: ,GCS: , 11:17,Depart Scene 11:18,BP: / M,PULSE: 127,RR: 39 R,SPO2: 97 Ox,ETCO2: ,BG: ,PAIN: ,GCS: , 11:20,BP: / M,PULSE: 122,RR: 32 R,SPO2: 99 Ox,ETCO2: ,BG: ,PAIN: ,GCS: , 11:21,BP: / M,PULSE: 121,RR: 32 R,SPO2: 98 Ox,ETCO2: ,BG: ,PAIN: ,GCS: , 11:23,BP: / M,PULSE: 125,RR: 68 R,SPO2: 93 Ox,ETCO2: ,BG: ,PAIN: ,GCS: , 11:26,BP: / M,PULSE: 126,RR: 43 R,SPO2: 96 Ox,ETCO2: ,BG: ,PAIN: ,GCS: , 11:29,BP: / M,PULSE: 123,RR: 40 R,SPO2: 98 Ox,ETCO2: ,BG: ,PAIN: ,GCS: , 11:30,BP: / M,PULSE: 122,RR: 37 R,SPO2: 99 Ox,ETCO2: ,BG: ,PAIN: ,GCS: , 11:31,At Destination 11:46,BP: 159/95 M,PULSE: 119,RR: 18 R,SPO2: 97 Ox,ETCO2: ,BG: ,PAIN: 0,GCS: 15, 11:49,Call Closed Disclaimer v1.1 Copyright 2020 [employer] This EMS Care Summary contains data elements from the applicable legal record (which may be displayed differently). It is designed to provide pertinent information for the following purposes: continuity of care, clinical quality, and state data reporting. The complete legal record is available to ED staff and administrators of the receiving hospital in [facility]'s Patient Tracker. All data is provided "as is."
[~2021-02-27 11:36] MED LIST changes: +ARTHRITIS PAI42.5 GM TOP; +REGLAN 10 MG TA10 MG PO; +VITAMIN B-12500 MCG PO
[2021-02-27 11:41] VITALS: BP 159/110
[2021-02-27] MEDS ORDERED: ZINC30 M1 PO ×2 (11:50)
[2021-02-27] MEDS ORDERED: VIT C-ROSE HIP500 MG PO ×2 (11:51)
[2021-02-27] MEDS ORDERED: BLACK ELDERBER1 EACH PO ×2 (11:51)
[2021-02-27 12:10] LABS: ABSOLUTE NEUTROPHILS 3.9 thou/uL (1.4-8.2); BASOPHILS 1.1 % (0.0-2.0); EOSINOPHILS 0.4 % (0.0-3.0); HEMATOCRIT 41.7 % (37.0-47.0); HEMOGLOBIN 13.5 gm/dL (12.0-15.0); LYMPHOCYTES 31.6 % (24.0-44.0); MCH 27.1 pg (26.0-34.0); MCHC 32.3 g/dL (28.0-37.0); MCV 83.9 fL (80.0-100.0); PLATELET COUNT 283 thou/uL (150-400); POLYS 55.9 % (36.0-66.0); RBC 4.97 mil/uL (4.20-5.00); RDW 16.7 % (10.5-14.5); WBC 6.9 thou/uL (4.0-11.0)
[2021-02-27 12:19] LABS: CALCIUM 9.5 mg/dL (8.5-10.1); POTASSIUM 3.9 mmol/L (3.5-5.1)
[2021-02-27 12:57] LABS: MAGNESIUM 1.9 mg/dL (1.8-2.4)
--- NOTE | 2021-02-27 15:16 | NUR ---
ASSUMED CARE OF PT
[2021-02-27 17:13] VITALS: BP 168/120
[2021-02-27 20:06] VITALS: BP 156/98
[2021-02-27 23:52] VITALS: BP 113/68
[2021-02-28 02:38] LABS: ABSOLUTE NEUTROPHILS 3.6 thou/uL (1.4-8.2); BASOPHILS 1.1 % (0.0-2.0); EOSINOPHILS 0.2 % (0.0-3.0); HEMATOCRIT 38.4 % (37.0-47.0); HEMOGLOBIN 12.1 gm/dL (12.0-15.0); LYMPHOCYTES 39.4 % (24.0-44.0); MCH 26.9 pg (26.0-34.0); MCHC 31.6 g/dL (28.0-37.0); MCV 85.3 fL (80.0-100.0); MONOCYTES 13.3 % (1.0-8.0); PLATELET COUNT 262 thou/uL (150-400); RBC 4.51 mil/uL (4.20-5.00); RDW 16.6 % (10.5-14.5); WBC 7.8 thou/uL (4.0-11.0)
[2021-02-28 02:57] LABS: CREATININE 0.9 mg/dL (0.6-1.0); MAGNESIUM 2.3 mg/dL (1.8-2.4); POTASSIUM 4.5 mmol/L (3.5-5.1)
[2021-02-28 04:10] VITALS: BP 135/92
--- NOTE | 2021-02-28 04:51 | NUR ---
PT IS COMPLAINS OF CHEST PAIN BUT RELEIF WITH NITRO AND PASTE. NOTIFIED DR. VILLAR OF PT'S COMPLAINS OF CHEST PAIN AND ORDERS OBTAINED. PT THINKS MEDS HELPED SLEEPING DURING THE NIGHT WITH NITRO. VITALS ARE STABLE UP TO BATHROOM TO VOID WITH ASSISTANCE PER NURSING. WILL CONTINUE TO MONITOR AND ASSESS PER NURSING
[2021-02-28 07:00] VITALS: BP 137/94
--- NOTE | 2021-02-28 09:17 | EKG ---
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
--- NOTE | 2021-02-28 09:20 | EKG ---
[place] [address] [facility] [place] [address] ELECTROCARDIOGRAM REPORT Name: HARPER BOWENEros HARGROVE Room #: 219-P ADM IN M.R.#: [id number] Admission: 02/27/21 Attend Phys: Michael Ríos MD Discharge: Date of : 68 Report #: [id number] [facility] Test Date: 2021-02-27 Test Time: 20:40:07 Pat Name: CALLIE BOWEN Department: Room: 219 P Gender: F Marketing Planner: UNKNOWN : 1970 Requested By: Michael Ríos Order Number: [id number] MD: Miller Brown Measurements Intervals [place] Rate: 77 P: 14 AK: 135 QRS: 32 QRSD: 81 T: 5 QT: 435 QTc: 493 Interpretive Statements Sinus rhythm Borderline T wave abnormalities Borderline prolonged QT interval Compared to ECG 02/27/2021 14:48:09 T-wave abnormality now present Ventricular premature complex(es) no longer present Left ventricular hypertrophy no longer present Electronically Signed On 02-28-2021 9:20:45 CDT by Miller Brown [email or web address] <ELECTRONICALLY SIGNED> By: Miller Brown MD 02/28/21919 39 39 Miller Brown MD /MALINI
--- NOTE | 2021-02-28 09:29 | EKG ---
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 : 1970 Requested By: Arcenio Singletary Order Number: [id number] MD: Miller Brown Measurements Intervals [place] Rate: 87 P: 3 ND: 125 QRS: 18 QRSD: 84 T: 3 QT: 401 QTc: 483 Interpretive Statements Sinus rhythm Ventricular premature complex Left ventricular hypertrophy Compared to ECG 02/27/2021 11:40:46 Ventricular premature complex(es) now present Sinus tachycardia no longer present T-wave abnormality no longer present Electronically Signed On 02-28-2021 9:29:44 CDT by Miller Brown [email or web address] <ELECTRONICALLY SIGNED> By: Miller Brown MD 02/28/21928 1448 1448 Miller Brown MD /MALINI
[2021-02-28 12:00] VITALS: BP 120/73
--- NOTE | 2021-02-28 12:33 | EKG ---
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 : 1970 Requested By: Arcenio Singletary Order Number: [id number] MD: Mamadou Ac Measurements Intervals [place] Rate: 121 P: 26 SD: 127 QRS: 21 QRSD: 82 T: -7 QT: 354 QTc: 503 Interpretive Statements Sinus tachycardia Nonspecific ST and T wave abnormality Prolonged QT interval Compared to ECG 06/04/2018 18:04:03 Heart rate has increased Electronically Signed On 02-28-2021 12:33:04 CDT by Mamadou Ac [email or web address] <ELECTRONICALLY SIGNED> By: Mamadou Ac MD, [facility] 02/28/21 1233 1140 1140 Mamadou Ac MD, [facility] /EPI
--- NOTE | 2021-02-28 12:35 | 2DMMODE ---
[facility] [place] [address] 2 D/M-MODE ECHOCARDIOGRAM Name: CALLIE BOWEN DELVIN Room #: 219-P ADM IN .R.#: [id number] Admission: 02/27/21 Attend Phys: Michael Ríos MD Discharge: Date of : 68 Report #: [id number] THIS REPORT FOR: cc: lAe Urisa,Ale Garcia,Miller Barnes MD ~ APPROVED REPORT Study performed: 02/28/2021 09:59:36 EXAM: Comprehensive 2D, Doppler, and color-flow Echocardiogram Patient Location: Bedside Room #: 219 Status: routine BSA: 1.96 HR: 67 bpm BP: 137/99 mmHg Rhythm: NSR Other Information Study Quality: Good Indications Arrhythmia Chest Pain Hypertension/HDD 2D Dimensions IVSd: 7.97 (7-11mm) LVOT Diam: 19.49 (18-24mm) LVDd: 56.09 mm PWd: 7.90 (7-11mm) Ascending Ao: 35.31 (22-36mm) LVDs: 41.58 (25-40mm) Left Atrium: 32.17 (27-40mm) Aortic Root: 29.36 mm IVC: 13.00 mm Volumes Left Atrial Volume (Systole) Single Plane 4CH: 50.95 mL Single Plane 2CH: 60.47 mL LA ESV Index: 36.00 mL/m2 Aortic Valve AoV Peak Enrrique.: 1.33 m/s AO Peak Gr.: 7.05 mmHg LVOT Max P.37 mmHg LVOT Max V: 0.45 m/s [facility] [address] [place] [address] 2 D/M-MODE ECHOCARDIOGRAM Name: CALLIE BOWEN Room #: 219-P [facility] IN ..#: [id number] Admission: 02/27/21 Attend Phys: Michael Ríos MD Discharge: Date of : 68 Report #: [id number] Vmax: 1.02 cm2 Mitral Valve E/A Ratio: 1.3 MV Decel. Time: 240.15 ms MV E Max Enrrique.: 0.87 m/s MV A Enrrique.: 0.65 m/s MV PHT: 69.64 ms IVRT: 101.50 ms Pulmonary Valve PV Peak Enrrique.: 0.93 m/s PV Peak Gr.: 3.44 mmHg Pulmonary Vein P Vein S: 0.23 m/s P Vein A: 0.22 m/s P Vein D: 0.18 m/s P Vein A Dur.: 106.1 msec P Vein S/D Ratio: 1.28 Tricuspid Valve TR Peak Enrrique.: 2.13 m/s TR Peak Gr.: 18.12 mmHg PA Pressure: 23.00 mmHg Left Ventricle The left ventricle is normal size. There is normal LV segmental wall motion. There is normal left ventricular wall thickness. The left ventricular systolic function is normal. LVEF is >55%. Right Ventricle The right ventricle is normal size. The right ventricular systolic function is normal. Atria Left atrium is borderline dilated. The right atrium size is normal. Aortic Valve The aortic valve is normal in structure. Mild aortic regurgitation. There is no aortic valvular stenosis. Mitral Valve The mitral valve is normal in structure. Trace mitral regurgitation. No evidence of mitral valve stenosis. Tricuspid Valve The tricuspid valve is normal in structure. There is trace tricuspid [facility] [address] [place] [address] 2 D/M-MODE ECHOCARDIOGRAM Name: JESSICALLIE DELVIN Room #: 219-P ADM IN M.R.#: [id number] Admission: 02/27/21 Attend Phys: Michael Ríos MD Discharge: Date of : 68 Report #: [id number] regurgitation. Estimated PAP 23 mmHg. Pulmonic Valve The pulmonary valve is normal in structure. There is no pulmonic valvular regurgitation. Great Vessels The aortic root is normal in size. IVC is normal in size and collapses >50% with inspiration. Pericardium There is no pericardial effusion. <Conclusion> The left ventricle is normal size. There is normal left ventricular wall thickness. The left ventricular systolic function is normal. The right ventricle is normal size. Left atrium is borderline dilated. Mild aortic regurgitation. Trace mitral regurgitation. There is trace tricuspid regurgitation. Estimated PAP 23 mmHg. <ELECTRONICALLY SIGNED> By: Miller Brown MD 02/28/21 1235 1235 1235 Miller Brown MD /INF
[2021-02-28 15:24] VITALS: BP 120/82
[2021-02-28 20:08] VITALS: BP 133/85
[2021-03-01 00:24] VITALS: BP 120/66
[2021-03-01 04:15] VITALS: BP 123/73
[2021-03-01 08:10] VITALS: BP 133/92
[2021-03-01] MEDS ORDERED: METOPROLOL SUCC50 MG PO ×2 (10:43)
[2021-03-01 11:46] VITALS: BP 123/73
--- NOTE | 2021-03-01 12:08 | NUR ---
ASSESSMENT CHARTED. PT ALERT AND ORIENTED. VSS. PRN PAIN MED GIVEN FOR SCHMITT. SEEN BY DR. DICKENS ORDERS GIVEN TO DISCHARGE PT TO HOME. DISCHARGE INSTRUCTIONS GIVEN TO PT. PT VERBERLISED UNDERSTANDING. PT LEFT THE FACILITY ACCOMPANIED BY THE DAUGHTER.
== END 2021-03-01 12:09 | disposition home or self-care (01) | DRG 310 ==
LOC: ER 11:36 → EROBS 15:22 → 2N 15:22
PROVIDERS: Nurse Practitioner; Student in an Organized Health Care Education/Training Program; ADMIT Hospitalist; ATTEND Hospitalist
DX: I47.1 Supraventricular tachycardia (principal); Z20.822 Contact with and (suspected) exposure to COVID-19; M54.9 Dorsalgia, unspecified; G89.29 Other chronic pain; E66.9 Obesity, unspecified; I10 Essential (primary) hypertension; Z90.710 Acquired absence of both cervix and uterus; Z88.1 Allergy status to other antibiotic agents; Z88.0 Allergy status to penicillin; Z88.2 Allergy status to sulfonamides; Z88.8 Allergy status to other drugs, medicaments and biological substances; Z82.49 Family history of ischemic heart disease and other diseases of the circulatory system; Z68.31 Body mass index [BMI] 31.0-31.9, adult; Z79.82 Long term (current) use of aspirin; Z79.899 Other long term (current) drug therapy
CPT/HCPCS: 10081

== ENCOUNTER 2021-03-03 12:23 | Emergency (ER) | payer OTHER ==
[~2021-03-03] VITALS: Ht 167.6 cm; Wt 88.9 kg
[~2021-03-03 12:23] MED LIST changes: +BLACK ELDERBER1 EACH PO; +METOPROLOL SUCC50 MG PO; +VIT C-ROSE HIP500 MG PO; +ZINC30 M1 PO
[2021-03-03 13:16] LABS: ABSOLUTE NEUTROPHILS 5.5 thou/uL (1.4-8.2); BASOPHILS 0.7 % (0.0-2.0); EOSINOPHILS 0.4 % (0.0-3.0); HEMATOCRIT 42.9 % (37.0-47.0); HEMOGLOBIN 13.4 gm/dL (12.0-15.0); LYMPHOCYTES 30.5 % (24.0-44.0); MCH 26.4 pg (26.0-34.0); MCHC 31.2 g/dL (28.0-37.0); MCV 84.7 fL (80.0-100.0); MONOCYTES 10.4 % (1.0-8.0); PLATELET COUNT 306 thou/uL (150-400); RBC 5.07 mil/uL (4.20-5.00); RDW 16.3 % (10.5-14.5); WBC 9.4 thou/uL (4.0-11.0)
[2021-03-03 13:32] LABS: CALCIUM 10.2 mg/dL (8.5-10.1); POTASSIUM 4.7 mmol/L (3.5-5.1)
[2021-03-03 15:39] VITALS: BP 133/84
--- NOTE | 2021-03-03 16:22 | EKG ---
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 03/03/21 1621 1232 1232 Mamadou Ac MD, [facility] /EPI
== END 2021-03-03 15:05 | disposition home or self-care (01) ==
LOC: ER 12:23
PROVIDERS: Nurse Practitioner
DX: R07.89 Other chest pain (principal); I10 Essential (primary) hypertension; Z90.710 Acquired absence of both cervix and uterus; Z98.890 Other specified postprocedural states; Z79.899 Other long term (current) drug therapy; Z79.82 Long term (current) use of aspirin; Z79.891 Long term (current) use of opiate analgesic; Z88.1 Allergy status to other antibiotic agents; Z88.0 Allergy status to penicillin; Z88.2 Allergy status to sulfonamides; Z88.5 Allergy status to narcotic agent; Z88.8 Allergy status to other drugs, medicaments and biological substances

== ENCOUNTER → 2021-03-13 | Outpatient (CLI) | payer OTHER | LOC: SJCVCIMAG 08:01 | PROVIDERS: ATTEND Internal Medicine Cardiovascular Disease | DX: I47.1 Supraventricular tachycardia (principal); I42.9 Cardiomyopathy, unspecified; I10 Essential (primary) hypertension; Z88.2 Allergy status to sulfonamides; Z88.1 Allergy status to other antibiotic agents; Z88.0 Allergy status to penicillin; Z88.8 Allergy status to other drugs, medicaments and biological substances; Z79.82 Long term (current) use of aspirin; Z79.899 Other long term (current) drug therapy ==

== ENCOUNTER → 2021-04-07 | Outpatient (CLI) | payer OTHER | LOC: SJCVCIMAG 08:26 | PROVIDERS: ATTEND Internal Medicine Cardiovascular Disease | DX: R94.31 Abnormal electrocardiogram [ECG] [EKG] (principal); I47.1 Supraventricular tachycardia; R07.9 Chest pain, unspecified; R00.2 Palpitations; I10 Essential (primary) hypertension; Z88.1 Allergy status to other antibiotic agents; Z88.0 Allergy status to penicillin; Z88.2 Allergy status to sulfonamides; Z88.8 Allergy status to other drugs, medicaments and biological substances; Z79.82 Long term (current) use of aspirin; Z79.899 Other long term (current) drug therapy; Z72.89 Other problems related to lifestyle ==